=== PATIENT | male | born 1990 | race African-American/Black ===

== ENCOUNTER 2021-03-08 05:26 | Emergency (ER) | payer SELFPAY ==
[~2021-03-08] VITALS: Ht 175.3 cm; Wt 90.7 kg
[2021-03-08] MEDS ORDERED: HYDROCODON-ACE1 EA10 PO (06:53)
== END 2021-03-08 08:00 | disposition home or self-care (01) ==
LOC: ED 05:26
DX: S16.1XXA Strain of muscle, fascia and tendon at neck level, initial encounter (principal); S50.811A Abrasion of right forearm, initial encounter; T14.8XXA Other injury of unspecified body region, initial encounter; R07.89 Other chest pain; V53.5XXA Driver of pick-up truck or van injured in collision with car, pick-up truck or van in traffic accident, initial encounter; M54.5 Low back pain; Z23 Encounter for immunization
CPT/HCPCS: 70450; 71045; 71260; 72125; 73060; 73090; 73110; 74177; 80053; 82150; 82550; 83605; 83690; 85025; 86850; 86900; 86901; 90471; 90715; 99284-25; J1170; J2405; J7030; Q9967